=== PATIENT | male | born 1945 | race Caucasian/White ===

== ENCOUNTER 2021-04-18 13:26 | Outpatient (RCR) | payer MEDICARE, OTHER | END 2021-05-07 | disposition home or self-care (01) | LOC: ONC 13:26 | PROVIDERS: ATTEND Radiology Radiation Oncology | DX: C61 Malignant neoplasm of prostate (principal) | CPT/HCPCS: 77300; 77301; 77334; 77336; 77338; 77385; 99204 ==

== ENCOUNTER 2021-06-08 09:26 | Outpatient (RCR) | payer MEDICARE | END 2021-07-07 | disposition home or self-care (01) | LOC: ONC 09:26 | PROVIDERS: ATTEND Radiology Radiation Oncology | DX: C61 Malignant neoplasm of prostate (principal); Z80.42 Family history of malignant neoplasm of prostate ==